=== PATIENT | male | born 1990 | race African-American/Black ===

== ENCOUNTER 2024-02-17 17:01 | Emergency (ER) | payer SELFPAY ==
[~2024-02-17] VITALS: Ht 175.3 cm; Wt 99.8 kg
[2024-02-17 17:05] VITALS: O2SAT 98
[2024-02-17 19:58] VITALS: BP 148/86; PULSE 94; RESP 20; TEMP 99.5
== END 2024-02-17 20:01 | disposition home or self-care (01) ==
LOC: ER 17:01
DX: B34.9 Viral infection, unspecified (principal); J45.909 Unspecified asthma, uncomplicated; Z98.890 Other specified postprocedural states; Z90.49 Acquired absence of other specified parts of digestive tract
CPT/HCPCS: 71045; 99283; Z7610

== ENCOUNTER 2024-04-08 22:11 | Emergency (ER) | payer MEDICAID ==
[~2024-04-08] VITALS: Ht 175.3 cm; Wt 104.2 kg
[2024-04-08 22:22] VITALS: TEMP 98.4; O2SAT 97
[2024-04-08] MEDS ORDERED: KETOROLAC 15MG/ML VIAL IM ONE (22:45)
[2024-04-08] MEDS ORDERED: LIDO700A15 TP (23:17)
[2024-04-08 23:23] VITALS: BP 145/88; PULSE 78; RESP 16
[2024-04-08] MEDS: KETOROLAC 15MG/ML VIAL IM NR (23:23)
== END 2024-04-08 23:27 | disposition home or self-care (01) ==
LOC: ER 22:11
DX: R20.0 Anesthesia of skin (principal); J45.909 Unspecified asthma, uncomplicated; Z90.49 Acquired absence of other specified parts of digestive tract; Z98.890 Other specified postprocedural states
CPT/HCPCS: 99283; 73030; 96372; J1885